=== PATIENT | male | born 1970 | race Hispanic/Latino ===

== ENCOUNTER 2017-05-09 00:39 | Inpatient (IN) | payer OTHER, SELFPAY ==
[2017-05-09 01:19] LABS: #Basophils 0.1 thou/uL (0.0-0.2); #Eosinphils 0.3 thou/uL (0.0-0.7); #Lymphocytes 3.3 thou/uL (1.20-3.40); #Monocytes 1.6 thou/uL (0.11-0.59); #Neutrophils 12.2 thou/uL (1.40-6.50); %Basophils 0.4 % (0.0-1.0); %Eosinophils 1.9 % (0.0-10.0); %Lymphocytes 18.8 % (21.0-51.0); %Neutrophils 69.9 % (42.0-75.0); Hemoglobin 15.9 g/dL (14.0-18.0); Mean Corpuscular HGB CONC 33.6 g/dL (32.0-36.0); Mean Corpuscular Hemoglobin 27.9 pg (27.0-31.0); Mean Platelet Volume 7.8 fL (7.4-10.4); Platelet Count 237 thou/uL (130-400); White Blood Cell (WBC) Count 17.4 thou/uL (4.8-10.8)
[2017-05-09 01:53] LABS: ALT (SGPT) 51 U/L (8-55); AST (SGOT) 28 U/L (5-34); Albumin 4.1 g/dL (3.5-5.0); Alkaline Phosphatase 125 U/L (40-150); Anion Gap 10 mmol/L (10-20); BUN (Urea Nitrogen) 16 mg/dL (8.9-20.6); Bilirubin, Total 0.4 mg/dL (0.2-1.2); Calc. Creatinine Clearance 0 mL/min (70-130); Calcium 9.3 mg/dL (7.8-10.44); Carbon Dioxide 26 mmol/L (22-29); Chloride 103 mmol/L (98-107); Estimated GFR-MDRD Greater than 90; Globulin 3.7 g/dL (2.4-3.5); Glucose 126 mg/dL (70-105); Lipase 17 U/L (8-78); Potassium 4.1 mmol/L (3.5-5.1); Protein, Total 7.8 g/dL (6.0-8.3); Sodium 135 mmol/L (136-145)
[2017-05-09] MEDS ORDERED: Ondansetron HCl/PF 4 MG/2 ML Vial ONE ×2 (02:32→16:35)
[2017-05-09 03:16] LABS: Bilirubin Negative (Negative); Blood, Urine Negative (Negative); Clarity CLEAR (Clear); Glucose, Urine (Dipstick) Negative (Negative); Leukocyte Negative (Negative); Nitrite Negative (Negative); Protein, Urine (Dipstick) Negative (Neg-Trace); Specific Gravity, Urine 1.029 (1.002-1.036); pH, Urine 6.5 (5.0-9.0)
[2017-05-09] MEDS ORDERED: cefOXitin 2 GM in Sodium Chloride 0.9% 100 ML IVPB SCH ×2 (05:00→22:00)
[2017-05-09 05:40] VITALS: BMI 37.0
[2017-05-09] MEDS ORDERED: Ondansetron HCl/PF 4 MG/2 ML Vial IVP PRN ×3 (05:54→14:42)
[2017-05-09] MEDS ORDERED: Ondansetron ODT 4 MG TAB SL PRN (05:54)
[2017-05-09] MEDS: Sodium Chloride 0.9% 1,000 ML IV SCH ×2 (06:16→12:44)
--- NOTE | 2017-05-09 08:08 | CT ---
PRELIMINARY REPORT/[facility]/EMERGENCY AFTER HOURS PROCEDURE: EXAM: CT Abdomen and Pelvis With Intravenous Contrast CLINICAL HISTORY: 46 years old, male; Pain; Abdominal pain; Patient HX: 46/m patient presents with complaint of diffuse abdominal pain starting last night, has also had multiple episodes of diarrhea. Denies nausea, vomit ing, fever, urinary complaints, chest pain, shortness of breath, or other symptoms at this time. TECHNIQUE: Axial computed tomography images of the abdomen and pelvis with intravenous contrast. Coronal reformatted images were created and reviewed. COMPARISON: No relevant prior studies available. FINDINGS: LUNG BASES: Mild atelectasis and/or pulmonary parenchymal scarring. 9 mm noncalcified ovoid nodular opacity at the left lung base (image 6, series 2) of uncertain signif icance, possibly related to atelectasis, however correlation with clinical findings, risk factors and nonemergent formal chest CT to exclude any additional nodules is advised. Followup to confirm resolu tion/stability would be helpful. VASCULAR: Cardiac size is at the upper end of normal. No abdominal aortic aneurysm, dissection, or retroperitoneal hematoma. PERITONEAL : No free air or free fluid. GI: No hiatal hernia. The stomach contains some fluid and gas. The stomach is not sufficiently distended to evaluate wall t hickening. No appearance of bowel obstruction. Nonspecific fluid-filled loops of small bowel noted. Multiple small nonspecific mesenteric lymph nodes are seen. Mild mesenteric adenitis could be a consi deration. Portions of the colon and rectum are not sufficiently distended to evaluate wall thickening. Pericolonic vascularity is slightly accentuated distally. Mild proctocolitis cannot be excluded by im aging but could be correlated clinically. The distal appendix is dilated up to 12.5 mm in diameter with mild wall thickening and enhancement. There is periappendiceal stranding. Findings are consistent with acute appendicitis. No perforation/f ree air or drainable abscess is seen.. HEPATOBILIARY, PANCREAS, SPLEEN: Sagittal hepatic length is 20 cm. Hepatic attenuation is consistent with fatty infiltration. No calcified gallstones or biliary dilation. No pericholecystic fluid or stranding. No pancreatic inflammation. Spleen not enlarged. ADRENALS, KIDNEYS, BLADDER, RETROPERITONEAL: Adrenals within normal limits. No hydronephrosis. Symmetric renal enhancement. No perinephric fluid. The urinary bladder appears slightly thick walled. This could be artifact due to lack of distention. Clinical correlation for cystitis. Mild prominence of the prostate. MUSCULOSKELETAL: Mild degenerative changes of the spine. IMPRESSION: Moderately severe but uncomplicated acute appendicitis. Other nonspecific gastrointestinal findings discussed above. Indeterminate pulmonary nodular opacity. Nonemergent recommendations discussed above. Hepatic enlargement and fatty infiltration. Thickwalled appearance of the urinary bladder could be correlated clinically but may be artifact. Findings discussed above. THIS REPORT CONTAINS FINDINGS THAT MAY BE CRITICAL TO PATIENT CARE. The findings were verbally commun icated via telephone conference with Didier March at 3:35 AM PAINTER DECORATOR on 05/09/2017. The findings w ere acknowledged and understood. Thank you for allowing us to participate in the care of your patient. Dictated and Authenticated by: Jonas Deluna MD 05/09/2017 3:37 AM Central Time ([place] & [place]) FINAL REPORT CT ABDOMEN AND PELVIS WITH IV CONTRAST: Date: 05/09/17 FINDINGS/IMPRESSION: I agree with the preliminary report given by Dr. Jonas Deluna of [facility]. POS: OFF
[2017-05-09] MEDS ORDERED: FLU VACC QS2017-18 36 mo. & older 0.5 ML SYRINGE IM ONE (09:00)
[2017-05-09] MEDS ORDERED: Bupivacaine 0.25% HCL 30 ML VIAL ONE (12:07)
[2017-05-09] MEDS ORDERED: Lidocaine 2% w/Epinephrine 1:200K 20 ML VIAL ONE (12:08)
[2017-05-09] MEDS ORDERED: Fentanyl 100 MCG/2 ML VIAL ONE (12:31)
[2017-05-09] MEDS ORDERED: cefOXitin 2 GM, Syringe 1 ML in Sterile Water 10 ML SLOW IVP SCH ×2 (13:00→22:00)
[2017-05-09] MEDS ORDERED: Midazolam HCl 2 mg/2 ml Vial ONE (13:23)
[2017-05-09] MEDS ORDERED: ISOVUE-370 76%-LOCM 1 ML ONE (13:31)
--- NOTE | 2017-05-09 13:39 | HP ---
DATE OF ADMISSION: 05/09/2017 PRIMARY CARE PHYSICIAN: Dr. Sanders. CHIEF COMPLAINT: Right lower quadrant abdominal pain. HISTORY OF PRESENT ILLNESS: The patient is a previously healthy 46-year-old male. He had a cute onset of lower abdominal pain yesterday. This has migrated to the right lower quadrant. He has had some nausea, but no vomiting. He also notes an episode of diarrhea. He denies prior symptoms l jennifer this. He presented to the emergency room. CT scan confirms acute appendicitis. White blood luis alberto l count is elevated at 17,000. PAST MEDICAL HISTORY: Negative. PAST SURGICAL HISTORY: Hemorrhoidectomy. CURRENT MEDICATIONS: None. ALLERGIES: No known drug allergies. PERSONAL/SOCIAL HISTORY: He lives in [place]. He is and is present at bedside. They have 3 children. He works doing [employer]. He does not smoke and does not drink alcohol. PHYSICAL EXAMINATION: VITAL SIGNS: He is afebrile. Vital signs within normal limits. GENERAL: He is a well-developed, well-nourished, pleasant male, resting in bed, in no acute distress. He is 5 foot 7, 235 pounds. HEENT: Unremarkable. NECK: Supple without mass or tenderness. LUNGS: Clear to auscultation throughout. CARDIAC: Regular rate and rhythm without murmur. ABDOMEN: Soft and nontender except in the right lower quadrant where he has focal tenderness with gu arding. ASSESSMENT: The patient with acute appendicitis. PLAN: Laparoscopic appendectomy. I have discussed the operation in detail with the patient and his as well as potential risks. They understand and agree to proceed with surgery at this time.
[2017-05-09] MEDS ORDERED: HYDROcodone/Acetaminophen 10/325 mg Tablet PO PRN (14:37)
[2017-05-09] MEDS ORDERED: Dextrose 50% Abboject 50 ML SYRINGE SLOW IVP PRN (14:37)
[2017-05-09] MEDS ORDERED: Promethazine HCl 25 MG/ML VIAL IM PRN ×2 (14:37→14:42)
[2017-05-09] MEDS ORDERED: Dextrose 5% in Water 1,000 ML IV PRN (14:37)
[2017-05-09] MEDS ORDERED: hydrALAZINE 20 MG/ML VIAL SLOW IVP PRN (14:37)
[2017-05-09] MEDS ORDERED: Promethazine HCl 25 MG/ML VIAL SLOW IVP PRN (14:42)
[2017-05-09] MEDS ORDERED: Meperidine HCl/PF 25 MG/ML VIAL SLOW IVP PRN (14:42)
[2017-05-09] MEDS ORDERED: D5 1/2 NS w/20 mEq KCL 1,000 ML IV SCH (14:45)
[2017-05-09] MEDS ORDERED: Succinylcholine Chloride 20 MG/ML 10 ml SYRINGE FS ONE ×2 (14:51→16:35)
[2017-05-09] MEDS ORDERED: Morphine 5 MG/ML SYRINGE SLOW IVP PRN (14:52)
[2017-05-09] MEDS ORDERED: Lidocaine 1% PF 5 ML VIAL ONE (16:35)
[2017-05-09] MEDS ORDERED: PHENYLEPHRINE-NS 100 MCG/ML 10 ML SYRINGE ONE (16:35)
[2017-05-09] MEDS ORDERED: PROPOFOL 200 MG/20 ML VIAL ONE (16:35)
[2017-05-09] MEDS ORDERED: Glycopyrrolate 0.2 MG/ML 5 ML SYRINGE ONE (16:35)
[2017-05-09] MEDS ORDERED: Ketorolac Tromethamine 30 MG/ML VIAL ONE (16:35)
[2017-05-09] MEDS ORDERED: Dexamethasone 20 MG/5 ML VIAL ONE (16:35)
[2017-05-09 16:36] VITALS: TEMP 99.3
[2017-05-09] MEDS ORDERED: Ketorolac Tromethamine 30 MG/ML VIAL IVP SCH (18:00)
[2017-05-09 18:49] VITALS: BP 127/74
[2017-05-09] MEDS ORDERED: Famotidine 20 MG TAB PO SCH (21:00)
[2017-05-09] MEDS ORDERED: Famotidine/PF 20 mg/2ml Vial SLOW IVP SCH (21:00)
--- NOTE | 2017-05-10 07:44 | OP ---
DATE OF PROCEDURE: 05/09/2017 PREOPERATIVE DIAGNOSIS: Acute appendicitis. POSTOPERATIVE DIAGNOSIS: Acute appendicitis. PROCEDURE PERFORMED: Laparoscopic appendectomy. SURGEON: Dr. Edouard Obrien. ANESTHESIA: General endotracheal. INDICATIONS: The patient is a 46-year-old male. He presents with findings consistent with acute appendicitis and is taken to the operating room at this time for laparoscopic appendectomy. PROCEDURE IN DETAIL: Informed consent was obtained. The patient was taken to the operating room whe re general endotracheal anesthesia was obtained with the patient in supine position. Abdomen was pre pped with ChloraPrep and draped in sterile fashion. Local anesthetic was infiltrated using 0.25% Mar elle with epinephrine. A 5 mm infraumbilical incision was created through which a Veress needle was passed into the peritoneal cavity. A pneumoperitoneum was established using carbon dioxide up to a pressure of 15 mmHg. A 5 mm trocar was passed through this same incision. Laparoscopic camera was p assed through this port. Under direct vision, a 5 mm trocar port was passed through this same incisi on. Laparoscopic camera was passed through this port. Under direct vision, 2 additional ports were placed including a 5 mm left lower quadrant port and a 12 mm suprapubic port. Attention was turned to the right lower quadrant. The appendix was not initially visible. It was in flamed and adherent to the retroperitoneum. After mobilizing all small bowel away from this area, I was able to elevate the appendix uneventfully. It was thickened and inflamed consistent with acute a ppendicitis. The mesoappendix was grasped and taken down using electrocautery. The base of the appe ndix was skeletonized and divided between PDS Endoloop ties. The appendiceal stump was cauterized. The appendix was placed in a specimen retrieval bag, which was removed through the suprapubic port si te. The fascia was closed using 0 Vicryl suture with a GraNee needle. The right lower quadrant and pelvis were thoroughly irrigated. All irrigant was aspirated. All ports and instruments were remove d under direct vision. Pneumoperitoneum was carefully evacuated. Quarter percent Marcaine with epin ephrine was infiltrated in each port site. Skin edges approximated with 4-0 Monocryl subcuticular moy ture. Dermabond was placed externally. There were no complications. The patient tolerated the proc edure well and was taken to recovery room in stable condition.
--- NOTE | 2017-05-11 13:30 | DIS ---
DATE OF ADMISSION: 05/09/2017 DATE OF DISCHARGE: 05/09/2017 ADMISSION DIAGNOSIS: Acute appendicitis. DISCHARGE DIAGNOSIS: Acute appendicitis. OPERATION PERFORMED: Laparoscopic appendectomy. ADMISSION HISTORY: Patient is a 46-year-old male. He presented to the emergency room with findings consistent with appendicitis. I was consulted for further management. HOSPITAL COURSE: The patient was admitted myself. I recommended laparoscopic appendectomy and he wa s taken to the operating room that same day. Uneventful laparoscopic appendectomy was performed. Th ere was no perforation. He was afebrile. He was felt to be stable following the surgery for dischar ge. He tolerated diet, and his pain was well controlled and he was discharged home on the day of . He will follow up with myself in the office in 10-14 days. He was given a discharge prescript ion for hydrocodone.
== END 2017-05-09 18:49 | disposition home or self-care (01) | DRG 343 ==
LOC: ERS 00:39 → SURG A 04:25
PROVIDERS: ADMIT Specialist; ATTEND Specialist
PROC: 0DTJ4ZZ Resection of Appendix, Percutaneous Endoscopic Approach (ICD-10-PCS; principal; 2017-05-09)
DX: K35.80 Unspecified acute appendicitis (principal)
CPT/HCPCS: 36415; 74177; 80053; 81003; 83605; 83690; 85025; 87040; 88304; 96361; 96374; 96375; A4216; J0131; J0694; J1100; J1885; J2001; J2250; J2270; J2405; J2704; J3010; J7050; S0020

== ENCOUNTER 2018-04-10 16:32 | Emergency (ER) | payer OTHER ==
[2018-04-10] MEDS ORDERED: Fluorescein Opthalmic Strip ONE (16:42)
[2018-04-10] MEDS ORDERED: Proparacaine 0.5% Opth 15 ML BOT ONE (16:42)
== END 2018-04-10 17:03 | disposition home or self-care (01) ==
LOC: SCSER 16:32
DX: S05.02XA Injury of conjunctiva and corneal abrasion without foreign body, left eye, initial encounter (principal); W22.8XXA Striking against or struck by other objects, initial encounter
CPT/HCPCS: 99283